=== PATIENT | female | born 1960 | race Caucasian/White ===

== ENCOUNTER → 2018-03-08 | Outpatient (CLI) | payer BC ==
--- NOTE | 2018-03-08 15:43 | KCIC ---
MRI left calf without contrast dated 03/08/2018 2:45 PM Indication: History of piriformis syndrome. Now with increasing numbness and ankle and foot. . .. Comparison: No comparison is available. Technique: T1 and T2-weighted imaging performed in 3 planes to include the entire calf region. No contrast administered. Findings: Visualized soft tissue structures are unremarkable. No significant intramuscular edema. Mild diffuse fatty atrophy. No focal muscle volume loss or focal fatty atrophy. No fluid collection or mass. Bone marrow signal is homogeneous. No marrow edema. No periostitis or bone destruction. Limited imaged portions of the ankle are unremarkable. IMPRESSION: 1. No acute bony or soft tissue abnormality. 2. Mild fatty atrophy of the calf musculature. Electronically signed by: Kev Cooney MD (03/08/2018 3:40 PM) [facility]
--- NOTE | 2018-03-08 16:57 | KCIC ---
MRI of the lumbar spine without contrast 03/08/2018 CLINICAL HISTORY: Low back pain with left leg numbness and tingling. TECHNIQUE: Unenhanced T1-weighted and T2-weighted sagittal and axial and inversion recovery sagittal images of the lumbar spine were obtained. FINDINGS: Very mild S-shaped curvature of the thoracolumbar spine is seen. Degenerative signal changes are seen involving all of the disks of the lumbar spine. Degenerative signal changes are seen within the marrow surrounding these discs. Loss of height of the L4-5 disc is seen. The conus medullaris is normal morphology, position, and signal characteristics. At the L1-2 disc space there is a mild generalized disc bulge. Superimposed on this disc bulge is a right paracentral focal disc protrusion. This measures 2 mm in AP diameter. Degenerative changes are seen involving the facet joints bilaterally. There is mild ligament flavum hypertrophy bilaterally. These findings do not result in significant central spinal canal or neural foraminal stenosis. At the L2-3 and L3-4 disc spaces there are mild generalized disc bulges. Degenerative changes are seen involving the facet joints bilaterally. There is mild ligament flavum hypertrophy bilaterally. These findings do not result in significant central spinal canal or neural foraminal stenosis. At the L4-5 disc space there is a moderate generalized disc bulge. Superimposed on this disc bulge is a left paracentral focal disc herniation. This measures 7 mm in AP diameter. Degenerative changes are seen involving the facet joints bilaterally. There is moderate ligamentum flavum hypertrophy bilaterally. These findings when combined result in moderate to severe left greater than right central spinal canal stenosis. The disc herniation appears to impinge upon the left L5 nerve root within the left lateral aspect of the central spinal canal. Moderate left neural foraminal stenosis is seen. The right neural foramen is patent. At the L5-S1 disc space is a mild generalized disc bulge. Degenerative changes are seen involving the facet joints bilaterally. These findings when combined do not result in significant central spinal canal or neural foraminal stenosis. IMPRESSION: The changes of degenerative disc disease are seen involving the lumbar spine. These findings result in moderate to severe left greater than right central spinal canal stenosis with moderate left neural foraminal stenosis at L4-5. A left paracentral focal disc herniation is seen at this level which appears to impinge upon the left L5 nerve root as outlined above. Electronically signed by: Steven Gatica MD (03/08/2018 4:55 PM) [facility]
== END | disposition home or self-care (01) ==
LOC: KCIC MRI 13:53
PROVIDERS: ATTEND Psychiatry & Neurology Neurology with Special Qualifications in Child Neurology
DX: G57.02 Lesion of sciatic nerve, left lower limb (principal); M62.562 Muscle wasting and atrophy, not elsewhere classified, left lower leg; M51.36 Other intervertebral disc degeneration, lumbar region; M51.26 Other intervertebral disc displacement, lumbar region; M48.061 Spinal stenosis, lumbar region without neurogenic claudication
CPT/HCPCS: 72148; 73718

== ENCOUNTER → 2018-04-19 | Outpatient (CLI) | payer BC ==
[~2018-04-19] MED LIST: AMIT25TA PO; BUPIVACAINE MPF 0.25% 10 ML VIAL. ONE; IOHEXOL 180 MG/ML 10 ML VIAL. ONE; methylPREDNISolone ACETATE 80 MG/ML VIAL. ONE
--- NOTE | 2018-04-19 18:49 | PAIN ---
DATE OF SERVICE: 04/19/2018 INITIAL CONSULTATION FOR PAIN CLINIC CHIEF COMPLAINT: Low back and left lower extremity pain. HISTORY OF PRESENT ILLNESS: The patient is a 58-year-old female who presents with history of pain since about a year ago, May 2017, gradually increasing, not as a result of any specific injury or action that she is aware of. Pain is in the low back, left lower extremity, mostly in the posterior gluteus, posterior thigh, lateral thigh, anterior thigh, medial thigh, medial lower leg into the foot. The patient reports it is throbbing, tingling with radiation, intermittent in intensity, worse with standing, walking, changing positions, better with sitting or lying down. It awakens her from sleep at least once or twice at night. The patient reports it does not affect her bowel or bladder control and occasionally affects her ability to walk, but generally, it is worse with standing or sitting prolonged periods. The patient reports it is better with lying down, but again, it awakens her from sleep at night. The patient reports no symptoms on the right side. Reports a disability rate from 0-10, 10 being the worst and 0 with most categories, family and home responsibilities, social activity, occupation, sexual behavior, self-care and life support activities and 6 with recreational activities. The patient did have an MRI scan of the lumbar spine showing degenerative disk disease involving the lumbar spine, moderate to severe left greater than right central spinal canal stenosis with moderate left neural foraminal stenosis at L4-L5 with left paracentral focal disk herniation at the L4-L5 level. It appears to impinge upon the left L5 nerve root. The patient has done physical therapy from June 2017 to August 2017, which helped to a mild extent, but did not last very long. The patient is also doing exercises on her own, belongs to a gym, is doing stationary bicycle work as well as elliptical work and stretches and strengthening exercises every day. The patient has tried to do excess, which did not help significantly. She has tried no other medications at this time that she recalls. PAST MEDICAL HISTORY: Significant for only fracture of the patella, otherwise, the patient is in good health. No serious medical conditions. CURRENT MEDICATIONS: Include amitriptyline 25 mg once daily. ALLERGIES: THE PATIENT IS ALLERGIC TO AMOXICILLIN. FAMILY HISTORY: Significant for strokes and coronary artery disease. SOCIAL HISTORY: The patient does not smoke, drinks alcohol about twice a month on average. Does not use any illegal, illicit or recreational drugs. She is , lives with her spouse. She lives locally in [place], [place] and is a high school director. REVIEW OF SYSTEMS: The patient's review of systems is positive for those items mentioned in the history of present illness. All systems reviewed and otherwise negative. It is complete, full and well documented on the patient's chart. PHYSICAL EXAMINATION: VITAL SIGNS: The patient's blood pressure is 139/86, pulse 87, respirations 18, temperature 98.3 degrees Fahrenheit. Height is 5 feet 5 inches, weight is 140 pounds. GENERAL: The patient is awake, alert, oriented, appropriate, very pleasant demeanor. HEENT: Head shows normocephalic and atraumatic. Extraocular movements are intact and symmetrical. Oral cavity shows mucous membranes moist and pink. Dentition intact. NECK: Shows anterior throat supple without palpable lymphadenopathy noted. Swallow reflex symmetrical. CHEST: Shows normal with inspection. Breath sounds clear to auscultation bilaterally. HEART: Shows S1, S2 clear. No murmurs auscultated. ABDOMEN: Soft, nontender, nondistended. No palpable organomegaly is noted. No rebound or guarding demonstrated. BACK: The patient's back shows spine grossly in the midline, normal appearing cervical lordotic curvature, thoracic kyphotic curvature and lumbar lordotic curvature. Lumbar paraspinous muscle shows symmetrical on inspection, on palpation shows some moderate tenderness, but no asymmetry, no radiation, no trigger points. The patient has good rotational motion of the lumbar spine both laterally greater than 10 degrees right and left as well as extension greater than 10 degrees, forward flexion 45 degrees without pain reported. No tenderness over the sacrum or sacroiliac region or spinous processes themselves with direct palpation. EXTREMITIES: The patient's lower extremities show deep tendon reflexes 2+ in the patellar and 1+ in the tendo calcaneus tendons. Motor exam is strong with 5/5 dorsiflexion, extension, quadriceps and hamstring flexion and are equal. Peripheral pulses are 1+ posterior tibia. No peripheral edema is noted. The patient does have a positive straight leg raise on the left at about 40 degrees, decreased with knee flexion, right side is negative. Lower extremities are warm and dry to touch, equal in color and appearance. The patient is able to stand, stand on her toes without significant difficulty or loss of balance, walks with a normal appearing gait, does not appear to favor the right or left lower extremity significantly with ambulation. SKIN: Shows warm and dry, good turgor. No edema. No sores, rashes or bruising. IMPRESSION: 1. This is a 58-year-old female with almost 1-year history of low back and left lower extremity pain in a radicular fashion. 2. MRI scan of lumbar spine as noted. 3. History of fractured patella. PLAN: Options were discussed with the patient including conservative medical management, physical therapy and interventional techniques. She would like to pursue with interventional techniques. We discussed a lumbar transforaminal injection at the L4-L5 level on the left using description as well as anatomical models to describe the procedure. Risks were then discussed including, but not limited to, bleeding, infection, possibility of epidural hematoma and subsequent neurological compromise, dural puncture, headaches, spinal cord and/or nerve damage, side effects of steroid medication, potential injection of the vertebral artery at that level and permanent ischemic damage as well as exposure to fluoroscopy and poor results regarding pain control. The patient understands and wished to proceed. The patient will return to clinic in approximately 2 weeks for followup, was counseled on return appointment, activity level and side effects to be aware of. DIAGNOSIS: Lumbar radiculopathy with lumbar degenerative disk disease, lumbar herniated disk. PROCEDURES: Left-sided L4-L5 transforaminal epidural injection using C-arm fluoroscopic guidance under sterile prep and drape using local anesthetic. MEDICATION INJECTED: A total of 2 mL of 0.25% bupivacaine and 80 mg Depo-Medrol plus 1.5 mL of Isovue for contrast with good medial spread into the epidural space and lateral spread along the nerve root with negative uptake using digital subtraction. CONDITION ON DISCHARGE: Stable. The patient tolerated procedure well, had no complications. SONYA TENORIO MD DR: RIDGE/doyle JOB#: [id number] / [id number]
== END | disposition home or self-care (01) ==
LOC: PNCL 08:25
PROVIDERS: ATTEND Anesthesiology
DX: M51.16 Intervertebral disc disorders with radiculopathy, lumbar region (principal); Z88.1 Allergy status to other antibiotic agents; Z72.89 Other problems related to lifestyle; Z82.3 Family history of stroke; Z82.49 Family history of ischemic heart disease and other diseases of the circulatory system; Z79.899 Other long term (current) drug therapy
CPT/HCPCS: 64483; J1040; J3490; Q9965

== ENCOUNTER → 2018-05-10 | Outpatient (CLI) | payer BC ==
[~2018-05-10] MED LIST changes: -BUPIVACAINE MPF 0.25% 10 ML VIAL. ONE; +methylPREDNISolone ACETATE 40 MG/ML VIAL. ONE
--- NOTE | 2018-05-11 03:12 | PAIN ---
DATE OF SERVICE: 05/10/2018 PROGRESS NOTE FOR PAIN CLINIC: DIAGNOSES: Lumbar radiculopathy with lumbar degenerative disk disease and lumbar herniated disk. HISTORY OF PRESENT ILLNESS: The patient is a 58-year-old female who returns for followup status post left L4-L5 transforaminal injection x 1. The patient reports no significant improvement after the injection, really feels about the same as she did prior to it with pain radiating into the left lower extremity, posterior gluteus, posterior thigh, lateral thigh, anterior thigh, medial thigh, medial lower leg into the first and second great and second toes with tingling, burning, radiating, described as tight in the low back. The patient reports it is a 7 on a scale of 10 at its worst, 5 on average, 3 at its least and is a 5 today. The patient reports no new motor or sensory deficits, no new bowel or bladder incontinence or other complaints, but still significant pain in the left lower extremity, which is better with sitting or lying down, worse with standing and walking. The patient has not had any significant improvement at this time. PHYSICAL EXAMINATION: VITAL SIGNS: The patient's blood pressure 155/94, pulse 98, respirations 16, temperature 98.2 degrees Fahrenheit. Height is 5 feet 5 inches and weight is 143 pounds. GENERAL: The patient is awake, alert, oriented, appropriate, very pleasant demeanor. HEENT: Head shows normocephalic and atraumatic. Extraocular movements are intact and symmetrical. Oral cavity: Mucous membranes are moist and pink. Dentition is intact. NECK: Shows anterior throat is supple without palpable lymphadenopathy noted. Swallow reflex is symmetrical. CHEST: Shows normal with inspection. Breath sounds are clear to auscultation bilaterally. HEART: Shows S1 and S2 clear. No murmurs are auscultated. ABDOMEN: Soft, nontender and nondistended. No palpable organomegaly is noted. No rebound or guarding demonstrated. BACK: Shows spine grossly in the midline, normal-appearing cervical lordotic curvature, thoracic kyphotic curvature and lumbar lordotic curvature. Lumbar paraspinous muscle shows symmetrical on inspection. On palpation shows some moderate tenderness diffusely bilaterally, but without significant radiation. The patient shows good rotational motion of the lumbar spine, both right and left lateral greater than 10 degrees as well as extension greater than 10 degrees, forward flexion at 45 degrees without significant difficulty. EXTREMITIES: The patient's lower extremities show deep tendon reflexes at 2+ in the patellar, 1+ tendo calcaneus tendons are equal. Motor exam is strong with 5/5 dorsiflexion, extension, quadriceps and hamstring flexion and symmetrical. Peripheral pulses are 1+ posterior tibia. No peripheral edema is noted in the bilateral lower extremities. Options were discussed with the patient. The patient's old chart was reviewed as was her current medication regimen updated. Current review of systems updated today as well. We will proceed with a second injection today as a translaminar lumbar epidural steroid injection. Risks were again discussed including, but not limited to bleeding, infection, possibility of epidural hematoma and subsequent neurological compromise, dural puncture, headaches, spinal cord and/or nerve damage, side effects of steroid medication and poor results regarding pain control. The patient understands and wished to proceed. The patient will return to the clinic in approximately 2 weeks for followup, was counseled as to return appointment, activity level and side effects to be aware of. DIAGNOSES: Lumbar radiculopathy with lumbar degenerative disk disease and lumbar herniated disk. PROCEDURE: Lumbar epidural steroid injection, translaminar approach L4-L5 level using C-arm fluoroscopic guidance under sterile prep and drape using local anesthetic. MEDICATION INJECTED: A total of 120 mg Depo-Medrol plus 10 mL of preservative-free normal saline and 2 mL of Isovue for contrast. CONDITION AT DISCHARGE: Stable. The patient tolerated the procedure well and had no complications. SONYA TENORIO MD DR: RIDGE/doyle JOB#: [id number] / [id number]
== END | disposition home or self-care (01) ==
LOC: PNCL 13:59
PROVIDERS: ATTEND Anesthesiology
DX: M51.16 Intervertebral disc disorders with radiculopathy, lumbar region (principal); Z88.1 Allergy status to other antibiotic agents; Z88.8 Allergy status to other drugs, medicaments and biological substances
CPT/HCPCS: 62323; J1030; J1040; Q9965

== ENCOUNTER → 2018-05-24 | Outpatient (CLI) | payer BC ==
[~2018-05-24] MED LIST changes: +BUPIVACAINE MPF 0.25% 10 ML VIAL. ONE; -methylPREDNISolone ACETATE 40 MG/ML VIAL. ONE; -methylPREDNISolone ACETATE 80 MG/ML VIAL. ONE
--- NOTE | 2018-05-24 16:46 | PAIN ---
DATE OF SERVICE: 05/24/2018 DIAGNOSES: 1. Lumbar radiculopathy with lumbar degenerative disk disease, lumbar herniated disk. 2. Piriformis syndrome of her left. HISTORY OF PRESENT ILLNESS: The patient is a 58-year-old female who returns for followup status post lumbar epidural steroid injection and transforaminal injection on the left L4-L5. The patient reports that neither of these has decreased the pain in her lower leg, but her back is feeling somewhat better. The leg has still significant tenderness in the ankle, anterior on the top of the foot and into the first and second toes and the web between the toes. The patient reports the pain is 7 on a scale of 10 at its worst, 7 on average, 5 at its least and is a 7 today. The patient reports it is tight, shooting, tingling, radiating, becoming more noticeable with walking and standing. The patient reports it does not awaken her from sleep at night and is not causing any weakness or stumbling. She has not had any falls. She is just somewhat frustrated that the pain is still persistent even though we have tried 2 different approaches to the radicular pain. The patient reports it is essentially the same. No real improvement except for some decrease in back pain. PHYSICAL EXAMINATION: VITAL SIGNS: The patient's blood pressure 132/84, pulse 103, respirations 16, temperature is 98.0 degrees Fahrenheit, weight is 142 pounds. GENERAL: The patient is awake, alert, oriented, appropriate, very pleasant demeanor. HEENT: Head shows normocephalic, atraumatic. Extraocular muscles are intact and symmetrical. Oral cavity: Mucous membranes are moist and pink. Dentition is intact. NECK: Shows anterior throat supple without palpable lymphadenopathy noted. Swallow reflex is symmetrical. CHEST: Shows normal on inspection. Breath sounds clear to auscultation bilaterally. HEART: Shows S1, S2 clear. ABDOMEN: Soft, nontender, nondistended. No palpable organomegaly is noted. No rebound or guarding demonstrated. BACK: Shows spine grossly in the midline. Normal appearing thoracic kyphosis and lumbar lordotic curvature. Lumbar paraspinous musculature shows some mild tenderness with palpation, but only diffusely in the lower lumbar distribution. No tenderness over the sacrum or sacroiliac regions. The patient has good rotational motion of lumbar spine, both laterally as well as extension and flexion without difficulty. EXTREMITIES: Lower extremities show deep tendon reflexes 2+ in the patellar and tendo calcaneus tendons. Motor exam is strong with 5/5 dorsiflexion and extension. Peripheral pulses are 1+ posterior tibial. No peripheral edema is noted bilaterally. Options were discussed with the patient. The patient's old chart was reviewed as her current medication regimen and updated. Current review of systems is updated today as well and we will proceed with a left-sided piriformis muscle injection with fluoroscopic guidance. Risks were again discussed including, but not limited to bleeding, infection, possibility of extravasation of medication and spread of local anesthetic with numbness, side effects of steroid medication, exposure to fluoroscopy and poor results regarding pain control. The patient understands and wished to proceed. The patient will return to clinic in approximately 2 weeks for followup, was counseled on return appointment, activity level and side effects to be aware of. DIAGNOSIS: Lumbar radiculopathy with lumbar degenerative disk disease, lumbar herniated disk and piriformis syndrome of left. PROCEDURE: Left piriformis injection using C-arm fluoroscopic guidance under sterile prep and drape using local anesthetic. MEDICATION INJECTED: A total of 3 mL of 0.25% bupivacaine and 80 mg Depo-Medrol and 1.5 mL of Isovue for contrast. CONDITION AT DISCHARGE: Stable. The patient tolerated the procedure well, had no complications. SONYA TENORIO MD DR: RIDGE/doyle JOB#: [id number] / [id number]
== END | disposition home or self-care (01) ==
LOC: PNCL 14:19
PROVIDERS: ATTEND Anesthesiology
DX: G57.02 Lesion of sciatic nerve, left lower limb (principal); M51.16 Intervertebral disc disorders with radiculopathy, lumbar region; M79.18 Myalgia, other site; Z88.1 Allergy status to other antibiotic agents; Z88.8 Allergy status to other drugs, medicaments and biological substances
CPT/HCPCS: 20552; 77002; J3490; Q9965

== ENCOUNTER → 2018-06-14 | Outpatient (CLI) | payer BC ==
[~2018-06-14] MED LIST changes: -IOHEXOL 180 MG/ML 10 ML VIAL. ONE
--- NOTE | 2018-06-14 10:08 | PAIN ---
DATE OF SERVICE: 06/14/2018 PROGRESS NOTE FOR PAIN CLINIC DIAGNOSES: 1. Lumbar radiculopathy with lumbar degenerative disk disease and lumbar herniated disk. 2. Left piriformis syndrome. 3. Left ankle pain. HISTORY OF PRESENT ILLNESS: The patient is a 58-year-old female who returns for followup status post lumbar epidural steroid injection and also piriformis injection, both with very minimal decrease in pain, still has pain in the ankle, top of the foot and the lateral aspect of the foot with pain radiating to the first, second and third toes, worse with walking, standing, changing positions, again not significantly improved with any of the procedures that we performed so far and been eliminating things systematically. We discussed a deep and superficial peroneal block today and she would like to proceed with that as the pain is still significant in the foot itself. The patient reports occasionally she can push on the lateral aspect of her knee and cause the pain to be reproduced in the left foot, but not consistently. The patient reports no new motor or sensory deficits, no new bowel or bladder incontinence or other complaints. Reports the pain is a 7 on a scale of 10 at its worse, 5 on average, 3 at its least and is a 5 today, which was tight, tingling, radiating in the foot, it is tight with tingling into the lower extremity from the foot superiorly to the lateral aspect of the knee. The patient reports no new motor or sensory deficits, no new bowel or bladder incontinence or other complaints. The patient reports it is more noticeable with standing, walking and weightbearing, but even it is present with sitting and awakens her from sleep occasionally. PHYSICAL EXAMINATION: VITAL SIGNS: The patient's blood pressure 143/89, pulse 88, respirations 20, temperature 98.6 degrees Fahrenheit. Height is 5 feet 5 inches and weight is 141 pounds. GENERAL: The patient is awake, alert, oriented, appropriate, very pleasant demeanor. HEENT: Head shows normocephalic and atraumatic. Extraocular movements are intact and symmetrical. Oral cavity, mucous membranes are moist and pink. Dentition is intact. NECK: Shows anterior throat is supple without palpable lymphadenopathy noted. Swallow reflex is symmetrical. CHEST: Shows normal with inspection. Breath sounds are clear to auscultation bilaterally. HEART: Shows S1 and S2 clear. No murmurs are auscultated. ABDOMEN: The patient's abdomen is soft, nontender and nondistended. No palpable organomegaly is noted. No rebound or guarding demonstrated. BACK: Shows spine grossly in the midline. The patient has good rotational motion of the lumbar spine, both laterally as well as extension and flexion, but no radiation of pain is demonstrated. EXTREMITIES: The patient's lower extremities show deep tendon reflexes at 2+ in the patellar, 1+ tendo calcaneus tendons. Motor exam is strong with 5/5 dorsiflexion, extension, quadriceps and hamstring flexion. Peripheral pulses are 1+ posterior tibial. No peripheral edema is noted bilaterally. Options were discussed with the patient. The patient's old chart was reviewed as was her current medication regimen updated. Current review of systems updated today as well. We will proceed with a deep and superficial peroneal nerve block on the left at the ankle. Risks were discussed including but not limited to bleeding, infection, possibility of intravascular injection sequelae, spread of local anesthetic and numbness, side effects of local anesthetic and poor results regarding pain control. The patient understands and wished to proceed. The patient will return to the clinic in approximately 2 weeks for followup, was counseled as to return appointment, activity level and side effects to be aware of. Also discussed if not significantly improved, may warrant a podiatry evaluation as she has seen Dr. Garcia in the past with good results as well. We may consult him if not significantly improved. The patient will follow up as scheduled. DIAGNOSIS: Left ankle pain. PROCEDURE: Left deep and superficial peroneal nerve block under sterile prep and drape using local anesthetic. MEDICATION INJECTED: A total of 10 mL of 0.25% bupivacaine after negative aspiration. CONDITION AT DISCHARGE: Stable. The patient tolerated the procedure well and had no complications. SONYA TENORIO MD DR: RIDGE/doyle JOB#: [id number] / [id number]
== END | disposition home or self-care (01) ==
LOC: PNCL 08:10
PROVIDERS: ATTEND Anesthesiology
DX: M25.572 Pain in left ankle and joints of left foot (principal); G57.02 Lesion of sciatic nerve, left lower limb; M51.16 Intervertebral disc disorders with radiculopathy, lumbar region; Z88.1 Allergy status to other antibiotic agents; Z88.8 Allergy status to other drugs, medicaments and biological substances
CPT/HCPCS: 64450; J3490

== ENCOUNTER → 2021-01-02 | Outpatient (CLI) | payer BC, OTHER ==
[~2021-01-02] MED LIST changes: -BUPIVACAINE MPF 0.25% 10 ML VIAL. ONE
--- NOTE | 2021-01-02 09:56 | KCIC ---
EXAM: CT coronary artery calcium screening; radiologist over read. HISTORY: Cardiovascular screening. Family history of heart disease. Hyperlipidemia. TECHNIQUE: Computed tomographic images of the chest were obtained without contrast. Multiplanar refor matting was performed. *One or more of the following individualized dose reduction techniques were utilized for this examina tion: 1. Automated exposure control. 2. Adjustment of the mA and/or kV according to patient size. 3. Use of iterative reconstruction technique. COMPARISON: None. FINDINGS: The heart is normal in size. The aorta is normal in caliber. There are calcified the distal and right hilar granulomas. There is no lymphadenopathy. There is a calcified granuloma with adjacen t scarring within the medial left upper lobe. There is no suspicious pulmonary nodule. There is no in filtrate or pleural effusion. There is no acute finding involving the abdomen or osseous structures. Coronary artery calcium score: 0. IMPRESSION: 1. Coronary artery calcium score of 0. No identifiable calcified atherosclerotic plaque. 2. No significant incidental thoracic finding. Electronically signed by: Maryana Joshi MD (01/02/2021 9:54 AM) [id number]
== END ==
LOC: KCIC CT 09:15
PROVIDERS: ATTEND Family Medicine
DX: J84.10 Pulmonary fibrosis, unspecified (principal); J98.4 Other disorders of lung; E78.2 Mixed hyperlipidemia
CPT/HCPCS: 75571